=== PATIENT | female | born 1990 | race American Indian/Alaskan Native ===

== ENCOUNTER 2019-10-15 09:40 | Emergency (ER) | payer SELFPAY ==
[2019-10-15 09:48] VITALS: BP 153/93
[2019-10-15 10:38] LABS: Basophils % (Auto) 0.6 % (0.0-1.8); Eosinophils % (Auto) 0.8 % (0.0-4.3); Hematocrit 39.4 % (30.3-42.9); Hemoglobin 12.5 gm/dl (10.1-14.3); Lymphocytes # (Auto) 1.6 K/mm3 (1.2-5.4); Lymphocytes % (Auto) 48.8 % (13.4-35.0); Mean Corpuscular HGB Conc 32 % (30-34); Monocytes # (Auto) 0.3 K/mm3 (0.0-0.8); Monocytes % (Auto) 7.9 % (0.0-7.3); Platelet Count 264 K/mm3 (140-440); Red Blood Count 5.66 M/mm3 (3.65-5.03); Red Cell Distribution Width 16.3 % (13.2-15.2)
[2019-10-15 10:39] LABS: Mean Corpuscular Volume 70 fl (79-97)
[2019-10-15 10:46] LABS: BUN/Creatinine Ratio 17; Blood Urea Nitrogen 12 mg/dL (7-17); Calcium 9.2 mg/dL (8.4-10.2); Hemolysis Index 2
--- NOTE | 2019-10-15 10:54 | Emergency Department Report ---
Minor Respiratory - HPI Chief Complaint: Abdominal Pain Stated Complaint: SOB/ABD PAIN/N/COUGH/DIZZY Duration: 3 Days Pain Location: Throat, Chest Severity: mild Minor Respiratory: Yes Able to Tolerate Fluids, Yes Cough, No Rhinorrhea, No Sore Throat, No Ear Pain, No Sick Contacts, No Hemoptysis, No Chest Pain, No Shortness of Breath, No Fever Other History: Patient is a 29-year-old -[place] female comes to the ER today with a list of complaints everything from dizziness, abdominal pain, cough, to just not feeling well. Probing on exam indicates that she is concerned that she has Cobin 19. Patient has normal vital signs. She has no fever or chills. Her oxygen saturation is normal. Her lung sounds are normal. I have explained to the patient that even if she had Cobin she is young and healthy and that there would be no recommended treatment other than quarantine at home for 14 days. ED Review of Systems ROS: Stated complaint: SOB/ABD PAIN/N/COUGH/DIZZY Other details as noted in HPI Comment: All other systems reviewed and negative ED Past Medical Hx - Past Medical History Previous Medical History?: Yes Additional medical history: HEART MUMUR/ ECZEMA - Surgical History Past Surgical History?: No - Family History Family history: no significant - Social History Smoking Status: Never Smoker Substance Use Type: None - Medications Home Medications: Home Medications Medication Instructions Recorded Confirmed Last Taken Type Cetirizine HCl [ZyrTEC] 10 mg PO DAILY #30 capsule 10/15/19 Unknown Rx Fluticasone [Flonase] 1 spray NS QDAY #1 bottle 10/15/19 Unknown Rx Minor Respiratory Exam - Exam General: Vital signs noted. No distress. Alert and acting appropriately. HEENT: Yes Moist Mucous Membranes, No Pharyngeal Erythema, No Pharyngeal Exudates, No Rhinorrhea, No Conjuctival Injection, No Frontal Tenderness, No Maxillary Tenderness Ear: Neither TM Bulge, Neither TM Erythema, Neither EAC Pain, Neither EAC Discharge Neck: Yes Supple, No Adenopathy Lungs: Yes Good Air Exchange, No Wheezes, No Ronchi, No Stridor, No Cough, No Labored Respirations, No Retractions, No Use of Accessory Muscles, No Other Abnormal Lung Sounds Heart: Yes Regular, No Murmur Abdomen: Yes Normal Bowel Sounds, No Tenderness, No Peritoneal Signs Skin: No Rash, No Edema Neurologic: Alert and oriented, no deficits. Musculoskeletal: Unremarkable. ED Course Vital Signs 10/15/19 09:45 Temperature 98.6 F Pulse Rate 97 H Respiratory 18 Rate Blood Pressure 153/93 O2 Sat by Pulse 100 Oximetry ED Medical Decision Making - Lab Data Result diagrams: 10/15/19 10:06 10/15/19 10:06 - Radiology Data Radiology results: report reviewed, image reviewed - Medical Decision Making Lab Results 10/15/19 10/15/19 10/15/19 Range/Units 10:06 10:06 10:33 WBC 3.2 L (4.5-11.0) K/mm3 RBC 5.66 H (3.65-5.03) M/mm3 Hgb 12.5 (10.1-14.3) gm/dl Hct 39.4 (30.3-42.9) % MCV 70 L (79-97) fl MCH 22 L (28-32) pg MCHC 32 (30-34) % RDW 16.3 H (13.2-15.2) % Plt Count 264 (140-440) K/mm3 Lymph % (Auto) 48.8 H (13.4-35.0) % [place] % (Auto) 7.9 H (0.0-7.3) % Eos % (Auto) 0.8 (0.0-4.3) % Baso % (Auto) 0.6 (0.0-1.8) % Lymph # 1.6 (1.2-5.4) K/mm3 [place] # 0.3 (0.0-0.8) K/mm3 Eos # 0.0 (0.0-0.4) K/mm3 Baso # 0.0 (0.0-0.1) K/mm3 Seg Neutrophils % 41.9 (40.0-70.0) % Seg Neutrophils # 1.4 L (1.8-7.7) K/mm3 Sodium 140 (137-145) mmol/L Potassium 3.8 (3.6-5.0) mmol/L Chloride 102.1 (98-107) mmol/L Carbon Dioxide 22 (22-30) mmol/L Anion Gap 20 mmol/L BUN 12 (7-17) mg/dL Creatinine 0.7 (0.7-1.2) mg/dL Estimated GFR > 60 ml/min BUN/Creatinine Ratio 17 % Glucose 91 (65-100) mg/dL Calcium 9.2 (8.4-10.2) mg/dL Urine Bilirubin Neg (Negative) Urine RBC (Auto) 1.0 (0.0-6.0) /HPF U Epithel Cells (Auto) 15.0 H (0-13.0) /HPF Vital Signs 10/15/19 09:45 Temperature 98.6 F Pulse Rate 97 H Respiratory 18 Rate Blood Pressure 153/93 O2 Sat by Pulse 100 Oximetry Labs noted as ordered by CLAU in triage. X-ray noted as ordered by CLAU in triage. Patient being discharged home with detailed discharge instructions and follow-up with primary care. Referral has been given. Symptomatic treatment for her concerns. Patient is ambulatory, nontoxic and with normal vital signs. - Differential Diagnosis uri Critical care attestation.: If time is entered above; I have spent that time in minutes in the direct care of this critically ill patient, excluding procedure time. ED Disposition Clinical Impression: URI (upper respiratory infection) Disposition: TO HOME OR SELFCARE Is pt being admited?: No Does the pt Need Aspirin: No Condition: Stable Additional Instructions: Public Hotline for [facility] If concerned for COVID self isolate for 14 days. Resources provided here in ED- CONCERNING SYMPTOMS FEVER DRY COUGH PROFOUND SOB Over the counter symptom treatment Follow up PCP referral below labs and chest xray normal today- not suggestive of infectious etiology Prescriptions: Fluticasone [Flonase] 1 spray NS QDAY #1 bottle Cetirizine HCl [ZyrTEC] 10 mg PO DAILY #30 capsule Referrals: JOE STEELE MD [Staff Physician] - 3-5 Days Time of Disposition: 11:06
[2019-10-15 11:05] LABS: Bilirubin,Urine NEG (Negative); Blood,Urine SM (Negative); Color,Urine Yellow (Yellow); Mucus,Urine 3+ /HPF; Urobilinogen,Urine < 2.0 mg/dL (<2.0)
--- NOTE | 2019-10-15 11:40 | XRay Report ---
CHEST 2 VIEWS INDICATION / CLINICAL INFORMATION: Abdominal Pain chest tightness. COMPARISON: None available. FINDINGS: SUPPORT DEVICES: None. HEART / MEDIASTINUM: No significant abnormality. LUNGS / PLEURA: No significant pulmonary or pleural abnormality. No pneumothorax. ADDITIONAL FINDINGS: No significant additional findings. IMPRESSION: No significant abnormality Signer Name: Doroteo Hummel MD FACR Signed: 10/15/2019 11:35 AM Workstation Name: [id number]
== END 2019-10-15 11:42 | disposition home or self-care (01) ==
LOC: ED 09:40
DX: J06.9 Acute upper respiratory infection, unspecified (principal)
CPT/HCPCS: 36415; 71046; 80048; 81001; 85025